=== PATIENT | male | born 1950 | race Caucasian/White ===

== ENCOUNTER 2024-05-13 14:55 | Inpatient (IN) ==
[2024-05-13] MEDS ORDERED: Lorazepam PYXIS KEY PRN ×2 (15:44→17:04)
[2024-05-13 16:00] LABS: INR 1.38 (0.85-1.14)
[2024-05-13] MEDS: LORazepam 2 mg VIAL 1 ml IV PUSH ONE ×2 (16:09→17:14)
[2024-05-13 16:38] LABS: ABS Basophils 0.1 10^3/uL (0.0-0.1); ABS Lymphocytes 0.5 10^3/uL (1.0-4.8); ABS Monocytes 0.8 10^3/uL (0.0-1.1); ABS Neutrophils 7.3 10^3/uL (1.5-7.6); ABS Nucleated RBC 0.01 10^3/ul; Eosinophil % 0.1 %; Hematocrit 36.3 % (38-53); Hemoglobin 12.6 g/dL (13.2-16.3); Lymphocyte % 6.1 %; Mean Corpuscular Hgb Conc 34.6 g/dL (31-36); Mean Corpuscular Volume 107.1 fL (80-97); Nucleated Red Blood Cells % 0.1 %/100WBC (0.0-0.8); Platelet Count 278 10^3/uL (150-450); Red Blood Count 3.39 10^6/uL (4.06-5.63); Red Cell Distribution Width 14.7 % (12-17); White Blood Count 8.7 10^3/uL (3.6-10.2)
[2024-05-13 16:47] LABS: Albumin/Globulin Ratio 1.9 (1-3); Calcium 9.8 mg/dL (8.6-10.3); Creatinine, Serum 1.05 mg/dL (0.67-1.17); Globulin 2.1 g/dL (2-4); Potassium 4.3 mmol/L (3.5-5.0); Total Protein 6.1 g/dL (6.4-8.9); eGFR CKD-EPI 75.4 (>60)
[2024-05-13 17:21] LABS: High Sensitivity Troponin 1 Hr 18 pg/mL (<20)
[2024-05-13 17:34] LABS: Magnesium 1.4 mg/dL (1.9-2.7)
[2024-05-13 17:41] LABS: TSH Ultra Thyroid Stim Horm 1.12 mcIU/mL (0.34-5.60)
[2024-05-13] MEDS: Thiamine 100 MG/ML 2 ml VIAL 100 MG, Folic Acid IV 1 MG, Multiple Vitamin IV ADULT 10 M... IV ONE (17:41)
[2024-05-13 17:47] LABS: Free T4 1.04 ng/dL (0.61-1.12)
[2024-05-13] MEDS ORDERED: Senna TAB 8.6 mg TAB PO PRN (18:00)
[2024-05-13] MEDS ORDERED: Sulfur Hexaflouride MICROSPHR 25 MG VIAL IV PRN (18:13)
[2024-05-13] MEDS ORDERED: Nicotine GUM 4MG FRUIT FLAVOR PO PRN (18:24)
[2024-05-13] MEDS: Metoprolol Tartrate 5 mg VIAL 5 ml VIAL (1 mg/ml) IV ONE (18:44)
[2024-05-13] MEDS: Thiamine 100 MG/ML 2 ml VIAL (200 mg) IM ONE (18:44)
[2024-05-13] MEDS: Nicotine PATCH 21 MG/24 HR PATCH TRANSDERM SCH (18:49)
[2024-05-13] MEDS: Magnesium Sulf 4 GM/100 ML IV 4,000 MG/100 ML BAG IVPB ONE (19:05)
[2024-05-13] MEDS: LORazepam 2 mg VIAL 1 ml IV PUSH SCH (19:15)
[2024-05-13 19:47] LABS: Folate 15.7 ng/mL (5.90-24.80)
[2024-05-14] MEDS: Metoprolol Tartrate 5 mg VIAL 5 ml VIAL (1 mg/ml) IV PRN (07:42)
[2024-05-14 08:18] LABS: ABS Basophils 0.1 10^3/uL (0.0-0.1); ABS Eosinophils 0.1 10^3/uL (0.0-0.5); ABS Lymphocytes 1.7 10^3/uL (1.0-4.8); ABS Monocytes 0.8 10^3/uL (0.0-1.1); ABS Neutrophils 7.7 10^3/uL (1.5-7.6); ABS Nucleated RBC 0.01 10^3/ul; Eosinophil % 0.8 %; Hematocrit 33.1 % (38-53); Hemoglobin 11.6 g/dL (13.2-16.3); Lymphocyte % 16.4 %; Mean Corpuscular Hemoglobin 37.5 pg (27-33); Mean Corpuscular Hgb Conc 35.1 g/dL (31-36); Mean Corpuscular Volume 107.1 fL (80-97); Mean Platelet Volume 8.8 fL (7.5-11.2); Nucleated Red Blood Cells % 0.1 %/100WBC (0.0-0.8); Platelet Count 232 10^3/uL (150-450); Red Blood Count 3.09 10^6/uL (4.06-5.63); Red Cell Distribution Width 14.3 % (12-17); White Blood Count 10.4 10^3/uL (3.6-10.2)
[2024-05-14 08:19] LABS: Calcium 8.7 mg/dL (8.6-10.3); Creatinine, Serum 0.85 mg/dL (0.67-1.17); Potassium 3.7 mmol/L (3.5-5.0); eGFR CKD-EPI 92.3 (>60)
[2024-05-14] MEDS: Multivitamins/Minerals TAB PO SCH (09:22)
[2024-05-14] MEDS ORDERED: LORazepam 2 MG/ML 1 mL Syringe IV ONE (15:26)
[2024-05-14] MEDS: LORazepam 2 mg VIAL 1 ml IV PUSH ONE (15:45)
[2024-05-14] MEDS: Metoprolol Tartrate 5 mg VIAL 5 ml VIAL (1 mg/ml) IV ONE ×2 (15:45→16:54)
[2024-05-14] MEDS: Potassium Chlor 20 meq TAB.ER PO ONE (15:46)
[2024-05-15 06:41] LABS: ABS Basophils 0.1 10^3/uL (0.0-0.1); ABS Eosinophils 0.1 10^3/uL (0.0-0.5); ABS Lymphocytes 1.4 10^3/uL (1.0-4.8); ABS Monocytes 0.5 10^3/uL (0.0-1.1); ABS Neutrophils 10.8 10^3/uL (1.5-7.6); Eosinophil % 0.4 %; Hematocrit 32.1 % (38-53); Hemoglobin 11.1 g/dL (13.2-16.3); Lymphocyte % 11.1 %; Mean Corpuscular Hemoglobin 36.6 pg (27-33); Mean Corpuscular Hgb Conc 34.5 g/dL (31-36); Mean Corpuscular Volume 106.2 fL (80-97); Mean Platelet Volume 9.6 fL (7.5-11.2); Platelet Count 220 10^3/uL (150-450); Red Blood Count 3.02 10^6/uL (4.06-5.63); Red Cell Distribution Width 14.4 % (12-17); White Blood Count 12.9 10^3/uL (3.6-10.2)
[2024-05-15 06:44] LABS: Calcium 8.9 mg/dL (8.6-10.3); Creatinine, Serum 0.69 mg/dL (0.67-1.17); Magnesium 1.5 mg/dL (1.9-2.7); Potassium 3.6 mmol/L (3.5-5.0); eGFR CKD-EPI 98.3 (>60)
[2024-05-15] MEDS: Potassium Chlor 20 meq TAB.ER PO ONE ×2 (07:58→14:23)
[2024-05-15 08:04] LABS: Phosphorus 2.8 mg/dL (2.5-5.0)
[2024-05-15] MEDS: Magnesium Sulf 4 GM/100 ML IV 4,000 MG/100 ML BAG IVPB ONE (08:39)
[2024-05-15] MEDS: Lactated Ringers 1000 ml BAG 1,000 ML IV SCH (10:17)
[2024-05-16 08:02] LABS: ABS Basophils 0.1 10^3/uL (0.0-0.1); ABS Eosinophils 0.1 10^3/uL (0.0-0.5); ABS Monocytes 0.6 10^3/uL (0.0-1.1); ABS Neutrophils 7.7 10^3/uL (1.5-7.6); Eosinophil % 1.4 %; Hematocrit 30.9 % (38-53); Hemoglobin 10.8 g/dL (13.2-16.3); Lymphocyte % 10.5 %; Mean Corpuscular Hemoglobin 37.5 pg (27-33); Mean Corpuscular Hgb Conc 35.1 g/dL (31-36); Mean Corpuscular Volume 106.8 fL (80-97); Mean Platelet Volume 9.7 fL (7.5-11.2); Platelet Count 201 10^3/uL (150-450); Red Blood Count 2.89 10^6/uL (4.06-5.63); Red Cell Distribution Width 13.8 % (12-17); White Blood Count 9.5 10^3/uL (3.6-10.2)
[2024-05-16 08:06] LABS: Calcium 8.8 mg/dL (8.6-10.3); Creatinine, Serum 0.87 mg/dL (0.67-1.17); Magnesium 2.2 mg/dL (1.9-2.7); Potassium 4.1 mmol/L (3.5-5.0); eGFR CKD-EPI 91.7 (>60)
[2024-05-17 05:43] LABS: Hematocrit 34.4 % (38-53); Hemoglobin 11.8 g/dL (13.2-16.3); Mean Corpuscular Hemoglobin 36.8 pg (27-33); Mean Corpuscular Hgb Conc 34.2 g/dL (31-36); Mean Corpuscular Volume 107.5 fL (80-97); Red Cell Distribution Width 13.9 % (12-17)
[2024-05-17 05:51] LABS: Creatinine, Serum 1.07 mg/dL (0.67-1.17); Magnesium 1.9 mg/dL (1.9-2.7); Potassium 4.1 mmol/L (3.5-5.0); eGFR CKD-EPI 73.7 (>60)
[2024-05-17 08:33] LABS: ABS Basophils 0.1 10^3/uL (0.0-0.1); ABS Eosinophils 0.1 10^3/uL (0.0-0.5); ABS Lymphocytes 1.4 10^3/uL (1.0-4.8); ABS Monocytes 0.8 10^3/uL (0.0-1.1); ABS Neutrophils 8.5 10^3/uL (1.5-7.6); ABS Nucleated RBC 0.01 10^3/ul; Eosinophil % 1.1 %; Mean Platelet Volume 9.4 fL (7.5-11.2); Nucleated Red Blood Cells % 0.1 %/100WBC (0.0-0.8); Platelet Count 237 10^3/uL (150-450)
[2024-05-17] MEDS: Magnesium Sulfate IV 1GM/100ML 1 GM/100 ML BAG IV ONE (08:54)
[2024-05-17] MEDS: CMC:Acamprosate DR 333 mg TAB (NF) PO SCH (11:00)
[2024-05-17] MEDS: Thiamine 100 MG/ML 2 ml VIAL 250 MG in NS 0.9% 100 ml BAG 100 ML IV SCH (11:01)
[2024-05-17] MEDS ORDERED: Sulfur Hexaflouride MICROSPHR 25 MG VIAL IV PRN (11:08)
[2024-05-18 06:46] LABS: Hemoglobin 11.1 g/dL (13.2-16.3); Mean Corpuscular Hemoglobin 37.5 pg (27-33); Mean Corpuscular Hgb Conc 34.8 g/dL (31-36); Mean Corpuscular Volume 107.8 fL (80-97); Mean Platelet Volume 9.7 fL (7.5-11.2); Platelet Count 220 10^3/uL (150-450); Red Blood Count 2.97 10^6/uL (4.06-5.63); Red Cell Distribution Width 13.7 % (12-17); White Blood Count 9.6 10^3/uL (3.6-10.2)
[2024-05-18 06:50] LABS: Calcium 8.7 mg/dL (8.6-10.3); Creatinine, Serum 0.87 mg/dL (0.67-1.17); Potassium 3.9 mmol/L (3.5-5.0); eGFR CKD-EPI 91.7 (>60)
[2024-05-19 06:52] LABS: Hematocrit 31.4 % (38-53); Hemoglobin 10.8 g/dL (13.2-16.3); Mean Corpuscular Hemoglobin 37.1 pg (27-33); Mean Corpuscular Hgb Conc 34.6 g/dL (31-36); Mean Corpuscular Volume 107.2 fL (80-97); Mean Platelet Volume 8.2 fL (7.5-11.2); Platelet Count 226 10^3/uL (150-450); Red Blood Count 2.93 10^6/uL (4.06-5.63); Red Cell Distribution Width 13.8 % (12-17); White Blood Count 8.4 10^3/uL (3.6-10.2)
[2024-05-19 08:08] LABS: Calcium 8.6 mg/dL (8.6-10.3); Creatinine, Serum 0.99 mg/dL (0.67-1.17); Potassium 3.9 mmol/L (3.5-5.0); eGFR CKD-EPI 80.9 (>60)
[2024-05-19] MEDS ORDERED: fentaNYL 100 mcg/2 ml 50 MCG/ML VIAL ONE (08:54)
[2024-05-19] MEDS ORDERED: Naloxone 0.4 mg VIAL 0.4 mg/ml 1 ml VIAL ONE (08:54)
[2024-05-19] MEDS ORDERED: Flumazenil 0.5 mg/5 ml 0.1 MG/ML 5 ml VIAL ONE (08:54)
[2024-05-19] MEDS ORDERED: Midazolam 5 mg/5 ml VIAL 1 mg/ml 5 ml VIAL (5 mg) ONE (08:55)
[2024-05-19] MEDS: fentaNYL 100 mcg/2 ml 50 MCG/ML VIAL IV SLOW PU ONE (10:24)
[2024-05-19] MEDS: Midazolam 10 mg/10 ml VIAL 1 mg/ml 10 ml VIAL (10 mg) IV SLOW PU ONE (10:25)
[2024-05-19] MEDS: Phenylephrine 40 mcg/mL 10mL (400mcg) SYRINGE ONE (10:26)
[2024-05-19] MEDS: KCL 20 MEQ/100 ML IVPREMIX 20 MEQ/100 ML BAG IV ONE (11:46)
[2024-05-20 06:11] LABS: Calcium 8.5 mg/dL (8.6-10.3); Creatinine, Serum 0.83 mg/dL (0.67-1.17); Potassium 4.3 mmol/L (3.5-5.0)
[2024-05-20 06:35] LABS: Hematocrit 28.2 % (38-53); Hemoglobin 9.7 g/dL (13.2-16.3); Mean Corpuscular Hemoglobin 37.4 pg (27-33); Mean Corpuscular Hgb Conc 34.5 g/dL (31-36); Mean Corpuscular Volume 108.4 fL (80-97); Mean Platelet Volume 8.7 fL (7.5-11.2); Platelet Count 215 10^3/uL (150-450); Red Cell Distribution Width 14.1 % (12-17); White Blood Count 7.9 10^3/uL (3.6-10.2)
[2024-05-20] MEDS ORDERED: Polyethylene Glycol 3350 17 GM PACKET PO PRN (12:13)
[2024-05-21 07:51] LABS: Hematocrit 29.6 % (38-53); Hemoglobin 10.1 g/dL (13.2-16.3); Mean Corpuscular Hemoglobin 36.6 pg (27-33); Mean Corpuscular Volume 107.6 fL (80-97); Mean Platelet Volume 8.9 fL (7.5-11.2); Platelet Count 269 10^3/uL (150-450); Red Blood Count 2.76 10^6/uL (4.06-5.63); Red Cell Distribution Width 13.8 % (12-17); White Blood Count 10.7 10^3/uL (3.6-10.2)
[2024-05-21 08:21] LABS: Calcium 8.8 mg/dL (8.6-10.3); Creatinine, Serum 0.85 mg/dL (0.67-1.17); Potassium 4.7 mmol/L (3.5-5.0); eGFR CKD-EPI 92.3 (>60)
[2024-05-21 09:41] VITALS: BP 111/57
== END 2024-05-21 12:05 | disposition home or self-care (01) | DRG 897 ==
LOC: ED 14:55 → EDHOLD 14:55 → MEDTELE 05-14 00:38 → SUATTDRO 05-14 11:00
PROVIDERS: ADMIT Student in an Organized Health Care Education/Training Program; ATTEND Hospitalist